=== PATIENT | female | born 1975 | race Caucasian/White ===

== ENCOUNTER → 2020-12-28 | Outpatient (CLI) | payer OTHER | LOC: LAB 12:20 | PROVIDERS: ATTEND Obstetrics & Gynecology | DX: Z01.812 Encounter for preprocedural laboratory examination (principal); Z20.822 Contact with and (suspected) exposure to COVID-19; D25.9 Leiomyoma of uterus, unspecified | CPT/HCPCS: U0003; U0005 ==

== ENCOUNTER → 2020-12-30 | Day surgery (SDC) | payer OTHER ==
[~2020-12-30] VITALS: Ht 162.6 cm; Wt 81.2 kg
[~2020-12-30] MED LIST: DEXAMETHASONE SOD PHOS 4 MG/ML VIAL ONE; HYDROmorphone 2 MG/ML VIAL IVP PRN; IV RINGERS,LACTATED 1000ML 1,000 ML IV SCH; LIDOCAINE 2% PF 5 ML VIAL. ONE; METHYLENE BLUE 0.5% 10ml AMPULE. ONE; MIDAZOLAM HCL/PF 2 MG/2 ML VIAL. ONE; MORPHINE SULFATE 2 MG/ML INJ. IVP PRN; ONDANSETRON PF 4 MG/2 ML VIAL. ONE; PROCHLORPERAZINE 10 MG/2 ML VIAL. IVP PRN; PROPOFOL 10 MG/ML (20ML) VIAL. IV ONE; ROCURONIUM 50 MG/5 ML VIAL. ONE; fentaNYL PF VIAL 100 MCG/2 ML VIAL IVP PRN; fentaNYL PF VIAL 100 MCG/2 ML VIAL ONE
[2020-12-30 09:07] VITALS: BP 114/64
[2020-12-30 09:14] VITALS: BP 114/64
[2020-12-30 10:03] LABS: BASO # 0.1 x10^3/uL (0.0-0.2); BASO % 1 % (0-3); EOS # 0.2 x10^3/uL (0.0-0.7); EOS % 3 % (0-3); HEMATOCRIT 40.6 % (36.0-47.0); HEMOGLOBIN 13.7 g/dL (12.0-15.5); LYMPH # 1.9 x10^3/uL (1.0-4.8); LYMPH % 23 % (24-48); MEAN CORPUSCULAR HEMOGLOBIN 32 pg (25-35); MEAN CORPUSCULAR HGB CONC 34 g/dL (31-37); MEAN CORPUSCULAR VOLUME 94 fL (79-100); MONO # 0.8 x10^3/uL (0.0-1.1); MONO % 10 % (0-9); NEUT % 63 % (31-73); PLATELET COUNT 369 x10^3/uL (140-400); RED BLOOD COUNT 4.34 x10^6/uL (3.50-5.40); RED CELL DISTRIBUTION WIDTH 16.1 % (11.5-14.5)
[2020-12-30 10:14] LABS: CREATININE 0.8 mg/dL (0.6-1.0); GFR 77.9; POTASSIUM 4.1 mmol/L (3.5-5.1)
[2020-12-30 10:18] LABS: CALCIUM 14.2 mg/dL (8.5-10.1)
--- NOTE | 2020-12-30 11:29 | PDOC1 ---
DEVELOPER ARCHITECT H&P Date of Admission: Date of Admission: History of Present Illness: 45y presents for scheduled surgery. The pt was first seen on 11/10/20 due to heavy bleeding. Prior the pt had underwent a CT revealing fibroids. An u/s (11/23/20) revealed that the uterus measured 11.5 x 8.0 x 5.5 cm, and fibroid measuring 4.9 x 5.0 x 5.4. They also reported a 4.3 cm cyst on the right. The pt has wanted a hysterectomy for some time due to her heavy bleeding. She also reports issues with cysts for some time. She states that after her first son she had some cyst taken out. She states that at her PP visit they performed an u/s and did the surgery b/c she had ~10 cysts. Discussed BSO vs retention. She would like her ovaries removed. She feels that they are responsible for a lot of her pain. Explained there were other potential causes of pelvic pain. The pt was then in tears. She states that she was to have a hysterectomy prior, but she did not have insurance at the time. PMH: Back pain PSH: cholecystectomy , carpal tunnel release , PP tubal ligation Meds: None All: PCN OBHx: TSVD x 2, AB x 2 Tester Equipment: Periods : regular. First day of Last Period 11/24/20. control BTL. Menarche 10yo SH: 1/2 PPD, rare EtOH FH: noncontributory Medications: Meds: Current Medications Medications (Trade) Dose Ordered Sig/Alena Route PRN Reason Start Time Stop Time Status Last Admin Dose Admin Ringer's Solution 1,000 ml @ 30 mls/hr Q24H IV 12/30/20 06:00 12/30/20 17:59 12/30/20 09:26 Allergies: Coded Allergies: Penicillins (Verified Allergy, Intermediate, Rash, 12/25/20) Physical Exam: Vital Signs: Vital Signs Date Time Temp Pulse Resp B/P (MAP) Pulse Ox O2 Delivery O2 Flow Rate FiO2 12/30/20 09:14 97.4 88 18 114/64 98 Room Air 97.4 PE: GENERAL: No apparent distress. Alert and oriented. HEENT: Head normocephalic, atraumatic. NECK: Supple LUNGS: Clear to auscultation. HEART: RRR, S1, S2 present, pulses intact ABDOMEN: Soft, positive bowel sounds. EXTREMITIES: No cyanosis or edema. NEUROLOGIC: Normal speech, normal tone PSYCHIATRIC: Normal affect, normal mood. SKIN: No ulceration. Labs: Laboratory Tests Test 12/30/20 08:14 12/30/20 09:00 POC Urine HCG, Qualitative Hcg negative (Negative) White Blood Count 8.0 x10^3/uL (4.0-11.0) Red Blood Count 4.34 x10^6/uL (3.50-5.40) Hemoglobin 13.7 g/dL (12.0-15.5) Hematocrit 40.6 % (36.0-47.0) Mean Corpuscular Volume 94 fL (79-100) Mean Corpuscular Hemoglobin 32 pg (25-35) Mean Corpuscular Hemoglobin Concent 34 g/dL (31-37) Red Cell Distribution Width 16.1 % (11.5-14.5) H Platelet Count 369 x10^3/uL (140-400) Neutrophils (%) (Auto) 63 % (31-73) Lymphocytes (%) (Auto) 23 % (24-48) L Monocytes (%) (Auto) 10 % (0-9) H Eosinophils (%) (Auto) 3 % (0-3) Basophils (%) (Auto) 1 % (0-3) Neutrophils # (Auto) 5.0 x10^3/uL (1.8-7.7) Lymphocytes # (Auto) 1.9 x10^3/uL (1.0-4.8) Monocytes # (Auto) 0.8 x10^3/uL (0.0-1.1) Eosinophils # (Auto) 0.2 x10^3/uL (0.0-0.7) Basophils # (Auto) 0.1 x10^3/uL (0.0-0.2) Sodium Level 141 mmol/L (136-145) Potassium Level 4.1 mmol/L (3.5-5.1) Chloride Level 100 mmol/L (98-107) Carbon Dioxide Level 31 mmol/L (21-32) Anion Gap 10 (6-14) Blood Urea Nitrogen 16 mg/dL (7-20) Creatinine 0.8 mg/dL (0.6-1.0) Estimated GFR (Cockcroft-Gault) 77.9 Glucose Level 89 mg/dL (70-99) Calcium Level 14.2 mg/dL (8.5-10.1) *H Laboratory Tests 12/30/20 09:00 Laboratory Tests 12/30/20 09:00 Laboratory Tests 12/30/20 09:00 Assessment & Plan: A/P 45y with fibroids, menorrhagia, and dysmenorrhea 1.) Hypercalcemia 14.2. New finding. Anesthesia recommends a outpt w/u prior to scheduling surgery. The pt does not have a PCP. Will send pt to Family Practice or internal Medicine doctor. 2.) Fibroids - scheduled for LAVH/BSO 3.) Menorrhagia - limited success with medical management in the past. EMB - Disordered proliferative phase endometrium with glandular and stromal breakdown without any evidence of hyperplasia or malignancy. 4.) Dysmenorrhea - as above 5.) Dyspareunia - will discuss at next appt in more depth 6.) Tob use - attempting to quit 7.) Contraception - BTL 8.) H/o ovarian cysts - small mass in right adnexa on CT EDMUNDO YOON MD Dec 30, 2020 11:29
--- NOTE | 2020-12-31 10:06 | NUR ---
Surgery cancelled 12/30 related to abnormal labs. Chart sent to medical records for coding.
== END | disposition home or self-care (01) ==
LOC: SURG 08:44
PROVIDERS: ATTEND Obstetrics & Gynecology
DX: D25.9 Leiomyoma of uterus, unspecified (principal); Z53.8 Procedure and treatment not carried out for other reasons; E66.9 Obesity, unspecified; M19.90 Unspecified osteoarthritis, unspecified site; J45.909 Unspecified asthma, uncomplicated; Z90.49 Acquired absence of other specified parts of digestive tract; Z98.51 Tubal ligation status; Z98.890 Other specified postprocedural states; Z79.899 Other long term (current) drug therapy; Z87.891 Personal history of nicotine dependence; Z88.0 Allergy status to penicillin
CPT/HCPCS: 36415; 80048; 81025; 85025; J0690; J1100; J2250; J2405; J2704; J3010; Q9968

== ENCOUNTER → 2021-03-02 | Outpatient (CLI) | payer OTHER ==
[2020-12-30 09:14] VITALS: BP 114/64
[~2021-03-02] MED LIST changes: -DEXAMETHASONE SOD PHOS 4 MG/ML VIAL ONE; -HYDROmorphone 2 MG/ML VIAL IVP PRN; -IV RINGERS,LACTATED 1000ML 1,000 ML IV SCH; -LIDOCAINE 2% PF 5 ML VIAL. ONE; -METHYLENE BLUE 0.5% 10ml AMPULE. ONE; -MIDAZOLAM HCL/PF 2 MG/2 ML VIAL. ONE; -MORPHINE SULFATE 2 MG/ML INJ. IVP PRN; -ONDANSETRON PF 4 MG/2 ML VIAL. ONE; +OXYC1TAB15 PO; -PROCHLORPERAZINE 10 MG/2 ML VIAL. IVP PRN; -PROPOFOL 10 MG/ML (20ML) VIAL. IV ONE; -ROCURONIUM 50 MG/5 ML VIAL. ONE; -fentaNYL PF VIAL 100 MCG/2 ML VIAL IVP PRN; -fentaNYL PF VIAL 100 MCG/2 ML VIAL ONE
== END ==
LOC: LAB 11:43
PROVIDERS: ATTEND Obstetrics & Gynecology
DX: Z01.812 Encounter for preprocedural laboratory examination (principal); Z20.822 Contact with and (suspected) exposure to COVID-19; D25.9 Leiomyoma of uterus, unspecified
CPT/HCPCS: U0003; U0005

== ENCOUNTER 2021-03-04 06:29 | Observation (INO) | payer OTHER ==
[~2021-03-04] VITALS: Ht 162.6 cm; Wt 81.2 kg
[2021-03-04] VITALS (11 sets, daily range): BP systolic 94–127; BP diastolic 48–78
[~2021-03-04 06:29] MED LIST changes: +HYDROmorphone 2 MG/ML VIAL IVP PRN; +IV RINGERS,LACTATED 1000ML 1,000 ML IV SCH; +MORPHINE SULFATE 2 MG/ML INJ. IVP PRN; -OXYC1TAB15 PO; +PROCHLORPERAZINE 10 MG/2 ML VIAL. IVP PRN; +fentaNYL PF VIAL 100 MCG/2 ML VIAL IVP PRN
[2021-03-04] MEDS ORDERED: PROPOFOL 10 MG/ML (20ML) VIAL. IV ONE ×2 (06:33→06:34)
[2021-03-04] MEDS ORDERED: LIDOCAINE 2% PF 5 ML VIAL. ONE (06:34)
[2021-03-04] MEDS ORDERED: DEXAMETHASONE SOD PHOS 4 MG/ML VIAL ONE (06:35)
[2021-03-04] MEDS ORDERED: ONDANSETRON PF 4 MG/2 ML VIAL. ONE (06:35)
[2021-03-04] MEDS ORDERED: ROCURONIUM 50 MG/5 ML VIAL. ONE (06:36)
[2021-03-04] MEDS ORDERED: METHYLENE BLUE 0.5% 10ml AMPULE. ONE (07:14)
[2021-03-04] MEDS ORDERED: FAMOTIDINE 20 MG/2 ML VIAL ONE (07:16)
[2021-03-04] MEDS ORDERED: fentaNYL PF VIAL 100 MCG/2 ML VIAL ONE ×2 (07:16→10:44)
[2021-03-04] MEDS ORDERED: MIDAZOLAM HCL/PF 2 MG/2 ML VIAL. ONE (07:17)
[2021-03-04 07:22] LABS: BASO % 1 % (0-3); EOS # 0.1 x10^3/uL (0.0-0.7); EOS % 2 % (0-3); HEMATOCRIT 36.2 % (36.0-47.0); HEMOGLOBIN 11.8 g/dL (12.0-15.5); LYMPH # 1.3 x10^3/uL (1.0-4.8); LYMPH % 22 % (24-48); MEAN CORPUSCULAR HEMOGLOBIN 31 pg (25-35); MEAN CORPUSCULAR HGB CONC 33 g/dL (31-37); MEAN CORPUSCULAR VOLUME 94 fL (79-100); MONO # 0.4 x10^3/uL (0.0-1.1); MONO % 7 % (0-9); NEUT # 4.1 x10^3/uL (1.8-7.7); NEUT % 68 % (31-73); PLATELET COUNT 326 x10^3/uL (140-400); RED BLOOD COUNT 3.85 x10^6/uL (3.50-5.40); RED CELL DISTRIBUTION WIDTH 14.7 % (11.5-14.5); WHITE BLOOD COUNT 5.9 x10^3/uL (4.0-11.0)
[2021-03-04 07:32] LABS: CALCIUM 8.6 mg/dL (8.5-10.1); CREATININE 0.6 mg/dL (0.6-1.0); GFR 108.6; POTASSIUM 4.1 mmol/L (3.5-5.1)
--- NOTE | 2021-03-04 07:58 | PDOC1 ---
HI TEACHER H&P Date of Admission: Date of Admission: History of Present Illness: 45y presents for scheduled surgery. The pt was previously scheduled on 12/30/20 but the surgery was cancelled due to hypercalcemia. The pts outpt w/u returned nml. The pt was first seen on 11/10/20 due to heavy bleeding. Prior the pt had underwent a CT revealing fibroids. An u/s (11/23/20) revealed that the uterus measured 11.5 x 8.0 x 5.5 cm, and fibroid measuring 4.9 x 5.0 x 5.4. They also reported a 4.3 cm cyst on the right. The pt has wanted a hysterectomy for some time due to her heavy bleeding. She also reports issues with cysts for some time. She states that after her first son she had some cyst taken out. She states that at her PP visit they performed an u/s and did the surgery b/c she had ~10 cysts. Discussed BSO vs retention. She would like her ovaries removed. She feels that they are responsible for a lot of her pain. Explained there were other potential causes of pelvic pain. The pt was then in tears. She states that she was to have a hysterectomy prior, but she did not have insurance at the time. PMH: Back pain PSH: cholecystectomy , carpal tunnel release , PP tubal ligation Meds: None All: PCN OBHx: TSVD x 2, AB x 2 Cardiology Physician: Periods : regular. First day of Last Period 11/24/20. control BTL. Menarche 10yo SH: 1/2 PPD, rare EtOH FH: noncontributory Medications: Meds: Current Medications Medications (Trade) Dose Ordered Sig/Alena Route PRN Reason Start Time Stop Time Status Last Admin Dose Admin Ringer's Solution 1,000 ml @ 30 mls/hr Q24H IV 03/04/21 06:00 03/04/21 17:59 03/04/21 07:23 Allergies: Coded Allergies: Penicillins (Verified Allergy, Intermediate, Rash, 03/04/21) Physical Exam: Vital Signs: Vital Signs Date Time Temp Pulse Resp B/P (MAP) Pulse Ox O2 Delivery O2 Flow Rate FiO2 03/04/21 07:07 97.3 78 20 124/62 99 Room Air 97.3 PE: GENERAL: No apparent distress. Alert and oriented. HEENT: Head normocephalic, atraumatic. NECK: Supple LUNGS: Clear to auscultation. HEART: RRR, S1, S2 present, pulses intact ABDOMEN: Soft, positive bowel sounds. EXTREMITIES: No cyanosis or edema. NEUROLOGIC: Normal speech, normal tone PSYCHIATRIC: Normal affect, normal mood. SKIN: No ulceration. Labs: Laboratory Tests Test 03/04/21 07:11 03/04/21 07:32 Sodium Level 139 mmol/L (136-145) Potassium Level 4.1 mmol/L (3.5-5.1) Chloride Level 103 mmol/L (98-107) Carbon Dioxide Level 29 mmol/L (21-32) Anion Gap 7 (6-14) Blood Urea Nitrogen 13 mg/dL (7-20) Creatinine 0.6 mg/dL (0.6-1.0) Estimated GFR (Cockcroft-Gault) 108.6 Glucose Level 91 mg/dL (70-99) Calcium Level 8.6 mg/dL (8.5-10.1) POC Urine HCG, Qualitative Hcg negative (Negative) Laboratory Tests 03/04/21 07:11 Laboratory Tests 03/04/21 07:11 Assessment & Plan: A/P 45y with fibroids, menorrhagia, and dysmenorrhea 1.) Fibroids - scheduled for LAVH/BSO 2.) Menorrhagia - limited success with medical management in the past. EMB - Disordered proliferative phase endometrium with glandular and stromal breakdown without any evidence of hyperplasia or malignancy. 3.) Dysmenorrhea - as above 4.) Dyspareunia - will discuss at next appt in more depth 5.) Tob use - attempting to quit 6.) Contraception - BTL 7.) H/o ovarian cysts - small mass in right adnexa on CT EDMUNDO YOON MD Mar 04, 2021 07:58
[2021-03-04] MEDS ORDERED: PHENYLEPHRINE in 0.9% NACL PF 1 MG/10 ML SYRINGE. IV ONE (08:15)
[2021-03-04] MEDS ORDERED: MORPHINE SULFATE 10 MG/ML VIAL. ONE (08:21)
[2021-03-04] MEDS ORDERED: IBUPROFEN 200 MG TABLET. PO PRN (10:30)
[2021-03-04] MEDS ORDERED: NALOXONE 0.4 MG/ML VIAL. IV PRN (10:30)
[2021-03-04] MEDS ORDERED: KETOROLAC 15 MG/ML VIAL. IV PRN (10:30)
[2021-03-04] MEDS ORDERED: DEXTROSE 50% 25 GM / 50ML DISP.SYRIN. IV PRN (10:30)
[2021-03-04] MEDS ORDERED: IV NORMAL SALINE 1000ML BAG 1,000 ML IV SCH (10:30)
[2021-03-04] MEDS ORDERED: 0.9 % SODIUM CHLORIDE 10 ML DISP.SYRIN. IV PRN (10:30)
[2021-03-04] MEDS ORDERED: diphenhydrAMINE 50 MG/ML VIAL IV PRN (10:30)
[2021-03-04] MEDS ORDERED: diphenhydrAMINE HCL 25 MG CAPSULE PO PRN (10:30)
[2021-03-04] MEDS ORDERED: MORPHINE SULFATE 2 MG/ML INJ. IV PRN ×2 (10:30)
[2021-03-04] MEDS ORDERED: oxyCODONE/APAP 5/325 1 TAB TABLET PO PRN (10:30)
[2021-03-04] MEDS ORDERED: IV DEXTROSE 5 %-0.45 % NACL 1,000 ML IV SCH (10:30)
[2021-03-04] MEDS ORDERED: MORPHINE SULFATE 2 MG/ML INJ. IVP PRN (10:45)
[2021-03-04] MEDS ORDERED: fentaNYL PF VIAL 100 MCG/2 ML VIAL IV PRN (10:45)
[2021-03-04] MEDS ORDERED: IV RINGERS,LACTATED 1000ML 1,000 ML IV SCH (10:45)
[2021-03-04] MEDS ORDERED: HYDROmorphone 2 MG/ML VIAL IVP PRN (10:45)
[2021-03-04] MEDS: fentaNYL PF VIAL 100 MCG/2 ML VIAL IV PRN ×2 (10:47→11:05)
[2021-03-04] MEDS ORDERED: PROCHLORPERAZINE 10 MG/2 ML VIAL. ONE (10:48)
[2021-03-04] MEDS ORDERED: DOCUSATE SODIUM 100 MG CAPSULE. PO SCH (11:00)
[2021-03-04] MEDS ORDERED: PROCHLORPERAZINE 5 MG TABLET. PO PRN (11:00)
--- NOTE | 2021-03-04 11:16 | NUR ---
pt. arrives from PACU via gurneyat 1116, drowsy, complaints of pain 10/22. RA, MAIDAS. Monitors placed on pt. and pt. oriented to room and call light. RN assesses pt. at this time.
--- NOTE | 2021-03-04 13:29 | PDOC4 ---
OPERATIVE NOTE: PreOp Dx: 1.) Fibroids, 2.) Menorrhagia, 3.) Dysmenorrhea, 4.) Dyspareunia, 5.) H/o ovarian cysts, 6.) Tob use, 7.) H/o BTL PostOp Dx: same Procedure: LAVH/BSO Surgeon: John Yoon Anesthesia: GETA EBL: 300 cc Fluids: 1100 UOP: 300 cc Findings: Large fibroid on right of uterus extending to lateral side wall, small serosal adhesions on the ovaries bilaterally, nml tubes and ovaries Complications: None Specimen: Uterus, bilateral tubes, and cervix EDMUNDO YOON MD Mar 04, 2021 13:29
--- NOTE | 2021-03-04 14:29 | OP ---
DATE OF SURGERY: 03/04/2021 PREOPERATIVE DIAGNOSES: 1. Fibroids. 2. Menorrhagia. 3. Dysmenorrhea. 4. Dyspareunia. 5. History of ovarian cyst. 6. Tobacco use. 7. History of tubal ligation. POSTOPERATIVE DIAGNOSES: 1. Fibroids. 2. Menorrhagia. 3. Dysmenorrhea. 4. Dyspareunia. 5. History of ovarian cyst. 6. Tobacco use. 7. History of tubal ligation. PROCEDURE: Laparoscopic-assisted vaginal hysterectomy with bilateral salpingo-oophorectomy. SURGEON: John Crouch MD ANESTHESIA: General endotracheal intubation. ESTIMATED BLOOD LOSS: 300 mL FLUIDS: 1100 mL URINE OUTPUT: 300 mL FINDINGS: A large fibroid on the right-sided uterus extending to the lateral sidewall. Small serosal adhesions on the ovaries bilaterally, normal tubes and ovaries otherwise with post-tubal changes. COMPLICATIONS: None. SPECIMENS: Uterus, tubes, ovaries, and cervix. DESCRIPTION OF PROCEDURE: The patient was taken to the operating room where general endotracheal intubation was obtained without difficulty. The patient was prepped and draped in normal sterile fashion. Attention was first turned to the vagina where a speculum was placed to visualize the cervix. The anterior lip of the cervix was then grasped with a single tooth tenaculum. An acorn uterine manipulator was then placed in the uterine cavity. At that point, the speculum was removed. Hein catheter was then placed in the patient's bladder. Attention was then turned to the abdomen where a 5 mm skin incision was made through her previous incision and just below her umbilicus. A Veress needle was introduced into the incision. The opening pressure was found to be greater than 15 mm, so it was felt that the Veress was not in the peritoneal cavity. At that point, the Veress was removed. A 5 mm trocar was then placed directly into the abdomen. Intraabdominal placement was confirmed with the laparoscope. At that point, the abdomen was insufflated to 15 mmHg. A second trocar was then placed on the left approximately two-thirds between the ischial spine and the umbilicus by first making a 5 mm skin incision, then by placing a 5 mm trocar under direct visualization of the laparoscope, attention was then turned to the right side where a 5 mm trocar was then placed on the right in similar fashion approximately two-thirds between the ischial spine and the umbilicus first by making a 5 mm skin incision and then placing a 5 mm trocar under direct visualization of laparoscope. Visualization of the pelvis revealed an enlarged uterus with a large fibroid on the right anterior uterus extending all the way to the lateral sidewall, making it difficult to see some of the pedicles. At that point, attention was then turned to the left tube, which was grasped and elevated to isolate the infundibulopelvic ligament on that side. There was some serosal adhesions to the left ovary. This thin serosal adhesion was taken down with the LigaSure device. Once the ovary was freed, the infundibulopelvic ligament was then coagulated and cut with the LigaSure device to the level of the round ligament. The LigaSure device was used to cut the round ligament on the left. LigaSure device was then used to serially coagulate and cut to the level of the uterine arteries. At that point, the peritoneum was undermined to allow for the creation of a bladder flap. Bladder flap was then brought to the midline. Few additional bites were then taken of the uterine pedicles on the left with the LigaSure device. Attention was then turned to the right where the tube was grasped and elevated. Again, there was a serosal adhesion connecting to the right ovary. This was taken down with laparoscopic scissors without electrocautery. At that point, the infundibulopelvic ligament on the right was then serially coagulated and cut to the level of the uterus. Once this was performed, LigaSure device was used to cut the round ligament on the right. LigaSure device was then used to serially coagulate and cut at the level of the uterine arteries. At that point, the peritoneum was undermined again to complete the bladder flap. Once this was accomplished, a few additional bites were taken on the right. At that point, the cervix was circumferentially cut with the Bovie device. Once this had been performed, Metzenbaum scissors were used to enter the anterior cul-de-sac. Once this was performed, attention was then turned to the posterior cul-de-sac, which was entered sharply with Metzenbaum scissors. Once this was performed, the left uterosacral ligament was grasped with Florecita clamps, cut and tagged. This was then performed on the right side where the Florecita clamp was used to clamp the right uterosacral ligament, cut it and then tag it. The uterus was then serially clamped, cut, and tied until all pedicles were free. At that point, the uterus was delivered. Good hemostasis was noted. Vaginal cuff was then closed by first making a lwmswp-ak-atmey stitch on the left with a second pass including the left uterosacral ligament. This was then tagged. Attention was then turned to the right side where a mfkwbv-hl-hlpkr stitch was then placed at the lateral edge with a second pass including the right uterosacral ligament. Three additional komzjj-gb-tdica stitches were used to close the remainder of the cuff. The cuff was then irrigated and good hemostasis was noted. At that point, all the stitches were cut. Attention was then turned to the abdomen. Once again, survey of the vaginal cuff laparoscopically revealed good hemostasis. At that point, the ureters were observed to be peristalsing. The peritoneum was then irrigated and good hemostasis was noted. At that point, the instruments were removed as well as the trocar. Laparoscopic incision were closed with 4-0 Monocryl in an interrupted fashion. The patient tolerated the procedure well and was taken to recovery room in stable condition. Sponge, laps and needles were correct x 3. Two grams Ancef were given prior to procedure. RICO DR: Tex TID: [id number] MTDD
[2021-03-04] MEDS ORDERED: KETOROLAC 30 MG/ML VIAL. IVP PRN (15:15)
[2021-03-04] MEDS: oxyCODONE/APAP 5/325 1 TAB TABLET PO PRN (17:55)
[2021-03-05 00:30] VITALS: BP 91/52
[2021-03-05] MEDS: oxyCODONE/APAP 5/325 1 TAB TABLET PO PRN ×3 (00:32→14:05)
[2021-03-05 05:15] VITALS: BP 91/47
[2021-03-05 07:55] VITALS: BP 90/57
[2021-03-05 08:19] LABS: CALCIUM 7.6 mg/dL (8.5-10.1); CREATININE 0.7 mg/dL (0.6-1.0); GFR 90.9; POTASSIUM 3.5 mmol/L (3.5-5.1)
[2021-03-05 08:26] LABS: BASO % 0 % (0-3); EOS % 0 % (0-3); HEMATOCRIT 27.7 % (36.0-47.0); LYMPH # 1.4 x10^3/uL (1.0-4.8); LYMPH % 17 % (24-48); MEAN CORPUSCULAR HEMOGLOBIN 31 pg (25-35); MEAN CORPUSCULAR HGB CONC 33 g/dL (31-37); MEAN CORPUSCULAR VOLUME 95 fL (79-100); MONO # 0.5 x10^3/uL (0.0-1.1); MONO % 7 % (0-9); NEUT # 6.4 x10^3/uL (1.8-7.7); NEUT % 76 % (31-73); PLATELET COUNT 269 x10^3/uL (140-400); RED BLOOD COUNT 2.93 x10^6/uL (3.50-5.40); RED CELL DISTRIBUTION WIDTH 14.9 % (11.5-14.5); WHITE BLOOD COUNT 8.4 x10^3/uL (4.0-11.0)
[2021-03-05] MEDS ORDERED: OXYC1TAB15 PO ×2 (09:54→09:58)
--- NOTE | 2021-03-05 14:07 | PDOC ---
CITY ASSESSOR PROGRESS NOTE Date of Service: DATE: 03/05/21 TIME: 13:05 Subjective: Pt with good pain control. Liliya PO. Voiding. Minimal lochia. Objective: Vital Signs: Vital Signs Date Time Temp Pulse Resp B/P (MAP) Pulse Ox O2 Delivery O2 Flow Rate FiO2 03/04/21 07:04 97.3 78 22 99 97.3 03/04/21 07:07 124/62 Room Air 03/04/21 10:17 6 Vital Signs Date Time Temp Pulse Resp B/P (MAP) Pulse Ox O2 Delivery O2 Flow Rate FiO2 03/05/21 09:05 18 Room Air 03/05/21 08:32 96 03/05/21 07:55 99.1 82 90/57 (68) 99.1 03/04/21 10:47 6.0 Labs: Laboratory Tests Test 03/05/21 07:45 White Blood Count 8.4 x10^3/uL (4.0-11.0) Red Blood Count 2.93 x10^6/uL (3.50-5.40) L Hemoglobin 9.0 g/dL (12.0-15.5) L Hematocrit 27.7 % (36.0-47.0) L Mean Corpuscular Volume 95 fL (79-100) Mean Corpuscular Hemoglobin 31 pg (25-35) Mean Corpuscular Hemoglobin Concent 33 g/dL (31-37) Red Cell Distribution Width 14.9 % (11.5-14.5) H Platelet Count 269 x10^3/uL (140-400) Neutrophils (%) (Auto) 76 % (31-73) H Lymphocytes (%) (Auto) 17 % (24-48) L Monocytes (%) (Auto) 7 % (0-9) Eosinophils (%) (Auto) 0 % (0-3) Basophils (%) (Auto) 0 % (0-3) Neutrophils # (Auto) 6.4 x10^3/uL (1.8-7.7) Lymphocytes # (Auto) 1.4 x10^3/uL (1.0-4.8) Monocytes # (Auto) 0.5 x10^3/uL (0.0-1.1) Eosinophils # (Auto) 0.0 x10^3/uL (0.0-0.7) Basophils # (Auto) 0.0 x10^3/uL (0.0-0.2) Sodium Level 139 mmol/L (136-145) Potassium Level 3.5 mmol/L (3.5-5.1) Chloride Level 104 mmol/L (98-107) Carbon Dioxide Level 28 mmol/L (21-32) Anion Gap 7 (6-14) Blood Urea Nitrogen 15 mg/dL (7-20) Creatinine 0.7 mg/dL (0.6-1.0) Estimated GFR (Cockcroft-Gault) 90.9 Glucose Level 90 mg/dL (70-99) Calcium Level 7.6 mg/dL (8.5-10.1) L Laboratory Tests 03/05/21 07:45 Laboratory Tests 03/05/21 07:45 Laboratory Tests 03/05/21 07:45 Physical Exam: GENERAL: No apparent distress. Alert and oriented. HEENT: Head normocephalic, atraumatic. NECK: Supple LUNGS: Clear to auscultation. HEART: RRR, S1, S2 present, pulses intact ABDOMEN: Soft, positive bowel sounds. EXTREMITIES: No cyanosis or edema. NEUROLOGIC: Normal speech, normal tone PSYCHIATRIC: Normal affect, normal mood. SKIN: No ulceration. FFNT below umb No C/C/E Port site inc: C/D/I Assessment & Plan: A/P 45y POD #1 s/p LAVH/BSO 1.) PO doing well 2.) Path pending 3.) Indication - fibroids, menorrhagia, and dysmenorrhea 4.) Dyspareunia 5.) Tob use 6.) Hgb 11.8 -> 9.0 7.) Cont PO care EDMUNDO YOON MD Mar 05, 2021 14:07
[2021-03-05 14:16] VITALS: BP 105/50
--- NOTE | 2021-03-05 14:42 | DS ---
DATE OF DISCHARGE: 03/05/2021 ADMISSION DIAGNOSES: 1. Fibroids. 2. Menorrhagia. 3. Dysmenorrhea. 4. Dyspareunia. 5. Tobacco use. 6. History of ovarian cyst. DISCHARGE DIAGNOSES: 1. Fibroids. 2. Menorrhagia. 3. Dysmenorrhea. 4. Dyspareunia. 5. Tobacco use. 6. History of ovarian cyst. PROCEDURE: Laparoscopic-assisted vaginal hysterectomy with bilateral salpingo-oophorectomy. BRIEF HOSPITAL COURSE: The patient is a 45-year-old 4, para 2-0-2-2, who presented to the hospital for scheduled surgery. The patient was previously scheduled for a LAVH/BSO on 12/30/2020, but the surgery was canceled due to her preop labs revealing hypercalcemia. The patient had an outpatient workup, which returned normal. The patient was first seen in the office on 11/10/2020 due to heavy bleeding. The patient underwent CT prior revealing fibroids. An ultrasound in November revealed a uterus measuring 11.5 x 8.0 x 5.5 cm with a fibroid measuring approximately 4.9 x 5.0 x 5.4. The patient had desired a hysterectomy for some time for heavy bleeding. The patient underwent said procedure on 03/04/2021. See operative note for full detail. By postop day #1, the patient was meeting all discharge criteria and was subsequently discharged home. Of note, the patient's hemoglobin on admission was 11.8 and after surgery was found to be 9.0. DISCHARGE INSTRUCTIONS: The patient was told not to lift anything greater than 20 pounds, to have pelvic rest for [address] on narcotics. CALL IF: The patient was to call if she had fevers, chills, nausea, vomiting, abdominal pain or any additional questions or concerns. FOLLOWUP APPOINTMENT: The patient was to follow up on 03/09/2021 at 1:15 p.m. in [place] for a postop visit. DISCHARGE MEDICATIONS: The patient was given a prescription for Percocet 5, 15 pills; Motrin 800 mg, 30 pills; Colace 100 mg, 30 pills and ferrous sulfate 325 mg, 30 pills. TASNEEM/CATARINA DR: Tex TID: [id number] MTDD
--- NOTE | 2021-03-08 17:12 | PATHOLOGY ---
[facility] Accession Number: [id number] . 01 Material submitted: . uterus - BILATERAL TUBES, CERVIX,OVARIES, AND UTERUS. Modifiers: BILATERAL TUBES, CERVIX, OVARIES . 01 Clinical history: . FIBROIDS HEAVY BLEEDING LAVH BSO . 02 Diagnosis: Uterus with attached bilateral fallopian tubes and ovaries, laparoscopic assisted vaginal hysterectomy with bilateral salpingo-oophorectomy: - Leiomyomas, uterine corpus, intramural, several, the largest measuring 5.0 cm in greatest dimension (uterine weight 267 grams). - Chronic cervicitis with focal squamous metaplasia. - Nabothian cysts, cervix. - Secretory endometrium showing focal glandular/stromal breakdown. - Adenomyosis, uterine corpus, subbasal, focal. - Congestion of bilateral fallopian tubes with focal mild hydrosalpinx of right fallopian tube. - Few cystic follicles of right ovary showing focal hemorrhage and regressive changes. - Left ovary showing no significant pathologic abnormalities. (JPM:yanely; 03/08/2021) MBR 03/08/2021 1659 Local . 02 Comment: There is no atypia or evidence of malignancy. (JONIM:yanely; 03/08/2021) . 02 Electronically signed: . Arnie Cole MD, Pathologist NPI- [id number] . 01 Gross description: . Fixative: Formalin Labeled: "Bilateral tubes cervix, ovaries and uterus" Specimen received: A uterus with bilateral attached ovaries and bilateral, fimbriated fallopian tubes Uterus weight: 267 g Uterus: 11.7 cm fundus to cervix, 7.2 cm cornu to cornu, 5.9 cm anterior to posterior that has been previously bivalved Serosa: Diego, smooth, focally, partially disrupted (1.4 x 1.4 cm) but otherwise unremarkable Cervix: 4.0 x 3.0 cm Cervical os: Central, slitlike and patent, measuring 1.2 cm in diameter The anterior lower uterine neck is inked blue and the posterior lower uterine neck is inked black. Endocervical canal: 4.4 cm in length by 0.2 cm-1.0 cm in diameter Endometrial cavity: Markedly compressed and distorted, 5.2 x 2.7 cm Endometrium: Brown and granular Endometrial thickness: Ranges from 0.2 cm to 0.4 cm Myometrium: [place] and trabecular and displays 3 well-circumscribed intramural nodules (ranging from 0.9 cm to 5.0 cm in greatest dimension). Sectioning through the nodules reveals diego-white whorled cut surfaces with areas of cystic degeneration, without calcifications, hemorrhage or necrosis. These nodules compress and distort the endometrial cavity. Myometrium thickness: Up to 4.1 cm Right fallopian tube: Fimbriated and intact; 5.5 cm in length, 0.6 cm in diameter Right fallopian tube cut surface: The lumen is focally dilated up to 0.5 cm in diameter Right ovary: 7 g, 4.6 x 2.4 x 1.6 cm Right ovary cut surface: Displays a unilocular, clear fluid-filled, smooth-walled cyst (0.5 cm in greatest dimension) Left fallopian tube: Fimbriated and is consistent with having been previously ligated; 4.5 cm in length, 0.7 cm in diameter Left fallopian tube cut surface: The proximal lumen is focally dilated up to 0.1 cm in diameter Left ovary: 2 g, 2.8 x 1.4 x 0.9 cm Left ovary cut surface: Unremarkable . [employer] Consultant sections are submitted as follows: A1: Anterior cervix A2: Posterior cervix A3: Anterior endomyometrial shavings, represented A4: Posterior endomyometrial shavings, represented A5-A6: Myometrial nodules, represented A7: Serosal shavings to include posterior gutter, represented A8: Right fallopian tube, represented A9: Right ovary, represented to include the entirety of the cyst A10: Left fallopian tube, represented A11: Left ovary, represented (ALTURAS; 03/05/2021) DKA/DKA 03/05/2021 1218 Local . 02 Pathologist provided ICD-10: D25.1, N72, N87.9, N88.8, N85.9, N80.0, N70.11, N83.01 . 02 CPT . 858289 Specimen Comment: A courtesy copy of this report has been sent to [phone], [phone] Specimen Comment: [id number] Specimen Comment: Report sent to / DR GUERRERO Performed at: [address] [facility] [address], [place], [place] [id number] MD Khadar Holt MD Phone: [phone] Performed at: 02 [facility] [place] [address] [place], [place] [id number] MD Arnie Cole MD Phone: [phone]
== END 2021-03-05 17:22 | disposition home or self-care (01) ==
LOC: SURG 06:29 → 3 SO LND 10:26
PROVIDERS: ADMIT Obstetrics & Gynecology; ATTEND Obstetrics & Gynecology
DX: N92.0 Excessive and frequent menstruation with regular cycle (principal); Z20.822 Contact with and (suspected) exposure to COVID-19; D25.9 Leiomyoma of uterus, unspecified; N94.6 Dysmenorrhea, unspecified; N94.10 Unspecified dyspareunia; N73.6 Female pelvic peritoneal adhesions (postinfective); N83.201 Unspecified ovarian cyst, right side; F17.210 Nicotine dependence, cigarettes, uncomplicated; Z98.51 Tubal ligation status; Z90.49 Acquired absence of other specified parts of digestive tract
CPT/HCPCS: 36415; 58554; 80048; 81025; 85025; 86850; 86900; 86901; 96374; 96375; A4209; A4314; A4364; A4930; G0378; G0379; J0690; J1100; J1885; J2250; J2270; J2370; J2405; J2704; J3010; J3490; Q0164; 88307; A4322; A4452; A4657; Q9968